=== PATIENT | female | born 1950 | race Hispanic/Latino ===

== ENCOUNTER 2017-08-26 15:55 | Observation (INO) | payer OTHER ==
[~2017-08-26] VITALS: Ht 157.5 cm; Wt 51.8 kg
[~2017-08-26 15:55] MED LIST: ROSU5TAB PO
[2017-08-26 16:57] LABS: APPEARANCE,URINE Clear (CLEAR); BILIRUBIN,URINE Negative (NEGATIVE); COLOR,URINE COLORLESS (YELLOW); GLUCOSE, URINE (UA) Negative (NEGATIVE); KETONES,URINE Negative (NEGATIVE); LEUKOCYTE ESTERASE ,URINE Negative (NEGATIVE); NITRATE,URINE Negative (NEGATIVE); OCCULT BLOOD,URINE Trace (NEGATIVE); PH,URINE 8.5 (5.0-8.0); PROTEIN,URINE Negative (NEGATIVE); UROBILINOGEN,URINE 0.2 mg/dL (0.2-1.0)
[2017-08-26] MEDS ORDERED: ASPIRIN 325 MG TABLET ONE (16:58)
[2017-08-26] MEDS ORDERED: NITROGLYCERIN 1GM/1 INCH PACKET TD ONE (16:58)
[2017-08-26 16:59] LABS: BASOPHILS % (AUTO) 1.1 % (0.0-5.0); EOSINOPHILS % (AUTO) 1.2 % (0.0-8.0); HEMATOCRIT 37.2 % (36-48); MEAN CORPUSCULAR HEMOGLOBIN 30.3 pg (27.0-33.0); MEAN CORPUSCULAR HGB CONC 33.5 g/dL (32.0-36.0); MEAN CORPUSCULAR VOLUME 90.5 fL (79-99); MONOCYTES % (AUTO) 7.6 % (3.0-13.0); NEUTROPHILS % (AUTO) 60.1 % (40.0-77.0); PLATELET COUNT (AUTO) 250 K/uL (130-400); RED BLOOD CELL COUNT(AUTO) 4.11 MIL/uL (4.00-5.50); RED CELL DISTRIBUTION WIDTH 12.8 % (11.0-15.5); WHITE BLOOD COUNT (AUTO) 6.2 K/uL (4.8-10.8)
[2017-08-26 17:06] LABS: BACTERIA,URINE None Seen /HPF (None Seen); RBC,URINE 0-1 /HPF (0-1); SQUAMOUS EPITHELIAL CELL,UR None Seen /LPF (0-2); WBC,URINE None Seen /HPF (0-1)
[2017-08-26 17:12] LABS: INR 0.99 (0.85-1.15); PARTIAL THROMBOPLASTIN TIME 24.9 SEC (26.3-35.5); PROTHROMBIN TIME 10.4 SEC (9.6-11.6)
[2017-08-26 17:50] LABS: CREATININE 0.5 mg/dL (0.5-1.5); POTASSIUM 3.9 mmol/L (3.5-5.1)
[2017-08-26] MEDS ORDERED: ACETAMINOPHEN 325 MG TAB PO PRN ×2 (18:15)
[2017-08-26] MEDS ORDERED: MAG HYDROX/AL HYDROX/SIMETH ES 30 ML SUSP UDCUP PO PRN (18:15)
[2017-08-26] MEDS ORDERED: GUAIFENESIN-DM 200/20 MG 10 ML PO PRN (18:15)
[2017-08-26] MEDS ORDERED: ONDANSETRON HCL 4 MG/2 ML VIAL IV PRN (18:15)
[2017-08-26] MEDS ORDERED: ACETAMINOPHEN-CODEINE 300/30MG TAB PO PRN (18:15)
[2017-08-26] MEDS ORDERED: LACTULOSE 20 GM/30 ML UDCUP PO PRN (18:15)
[2017-08-26] MEDS ORDERED: NITROGLYCERIN 0.4 MG SL TAB SL PRN (18:15)
[2017-08-26 18:18] LABS: ALBUMIN 3.5 g/dL (3.5-5.0); BILIRUBIN,TOTAL 0.3 mg/dL (0.2-1.0); CREATINE KINASE MB 1.5 ng/mL (0.5-3.6); TOTAL PROTEIN, SERUM 7.6 g/dL (6.0-8.3)
[2017-08-26] MEDS: METOPROLOL TARTRATE 25 MG TAB PO SCH (21:00)
[2017-08-26] MEDS ORDERED: ACETAMINOPHEN-CODEINE 300/30MG TAB ONE (22:09)
[2017-08-26] MEDS ORDERED: ZOLPIDEM TARTRATE 5 MG TAB PO PRN (23:15)
[2017-08-26] MEDS ORDERED: NITROGLYCERIN 1GM/1 INCH PACKET TD SCH (23:15)
[2017-08-26] MEDS ORDERED: HYDRALAZINE HCL 20 MG/ML VIAL IV PRN (23:15)
[2017-08-26] MEDS ORDERED: ALPRAZOLAM 0.5 MG TABLET PO PRN (23:15)
[2017-08-27 00:03] LABS: CREATINE KINASE MB 1.1 ng/mL (0.5-3.6); TROPONIN I 0.06 ng/mL (0.00-0.06)
[2017-08-27] MEDS ORDERED: NITROGLYCERIN 1GM/1 INCH PACKET TD ONE ×2 (00:32→08:48)
[2017-08-27] MEDS ORDERED: RANI150T7 PO (08:04)
[2017-08-27] MEDS ORDERED: ASPIRIN 325 MG TABLET ONE (08:47)
[2017-08-27] MEDS ORDERED: ENOXAPARIN SODIUM 40 MG/0.4 ML SYRINGE SQ ONE (08:48)
[2017-08-27] MEDS ORDERED: METOPROLOL TARTRATE 25 MG TAB ONE (08:48)
[2017-08-27] MEDS ORDERED: ENOXAPARIN SODIUM 40 MG/0.4 ML SYRINGE SQ SCH (09:00)
[2017-08-27] MEDS ORDERED: ASPIRIN 325 MG TABLET PO SCH (09:00)
[2017-08-27] MEDS: METOPROLOL TARTRATE 25 MG TAB PO SCH (09:00)
[2017-08-27] MEDS ORDERED: PANTOPRAZOLE SODIUM 40 MG TABLET.DR PO SCH (09:00)
[2017-08-27 09:27] LABS: CREATINE KINASE MB 0.9 ng/mL (0.5-3.6); TROPONIN I 0.06 ng/mL (0.00-0.06)
[2017-08-27 10:09] VITALS: BP 158/72
[2017-08-27] MEDS ORDERED: KETOROLAC TROMETHAMINE 15MG/ML IV PRN (10:30)
[2017-08-27 11:29] VITALS: BP 135/65
[2017-08-27 15:34] VITALS: BP 141/71
[2017-08-27] MEDS ORDERED: ATORVASTATIN CALCIUM 10 MG TABLET PO SCH (21:00)
== END 2017-08-27 18:28 | disposition home or self-care (01) ==
LOC: EDH 15:55 → EDHIP 18:13 → 4DH 08-27 09:45 → 2DH 08-27 15:44
PROVIDERS: ADMIT Family Medicine; ATTEND Family Medicine
DX: R07.89 Other chest pain (principal); R00.2 Palpitations; I10 Essential (primary) hypertension; E78.5 Hyperlipidemia, unspecified; F41.9 Anxiety disorder, unspecified; K21.9 Gastro-esophageal reflux disease without esophagitis; Z74.01 Bed confinement status; Z88.0 Allergy status to penicillin
CPT/HCPCS: 36415 ×2; 70450; 71045; 72072; 72100; 80053; 81001; 82150; 82550 ×3; 82553 ×3; 83690; 83874 ×2; 84484 ×3; 85025; 85610; 85730; 87804 ×2; 93005 ×3; 99285; G0378 ×24; J1650

== ENCOUNTER 2019-08-19 23:03 | Emergency (ER) | payer OTHER ==
[~2019-08-19 23:03] MED LIST changes: +RANI150T7 PO
[2019-08-19 23:31] LABS: BASOPHILS % (AUTO) 0.9 % (0.0-5.0); EOSINOPHILS % (AUTO) 1.6 % (0.0-8.0); HEMATOCRIT 37.2 % (36-48); LYMPHOCYTES % (AUTO) 27.8 % (21.0-51.0); MEAN CORPUSCULAR HEMOGLOBIN 29.1 pg (27.0-33.0); MEAN CORPUSCULAR HGB CONC 32.3 g/dL (32.0-36.0); MEAN CORPUSCULAR VOLUME 90.3 fL (79-99); MONOCYTES % (AUTO) 6.2 % (3.0-13.0); NEUTROPHILS % (AUTO) 63.1 % (40.0-77.0); PLATELET COUNT (AUTO) 304 K/uL (130-400); RED BLOOD CELL COUNT(AUTO) 4.12 MIL/uL (4.00-5.50); RED CELL DISTRIBUTION WIDTH 12.2 % (11.0-15.5); WHITE BLOOD COUNT (AUTO) 7.6 K/uL (4.8-10.8)
[2019-08-19] MEDS ORDERED: SODIUM CHLORIDE 0.9% 1000ML 1,000 ML IV ONE (23:39)
[2019-08-19 23:43] LABS: APPEARANCE,URINE Clear (CLEAR); BILIRUBIN,URINE Negative (NEGATIVE); COLOR,URINE Yellow (YELLOW); GLUCOSE, URINE (UA) Negative (NEGATIVE); KETONES,URINE Negative (NEGATIVE); LEUKOCYTE ESTERASE ,URINE Trace (NEGATIVE); NITRATE,URINE Negative (NEGATIVE); OCCULT BLOOD,URINE Trace (NEGATIVE); PROTEIN,URINE Negative (NEGATIVE); UROBILINOGEN,URINE 0.2 mg/dL (0.2-1.0)
[2019-08-19 23:55] LABS: BACTERIA,URINE None Seen /HPF (None Seen); RBC,URINE None Seen /HPF (0-1); WBC,URINE None Seen /HPF (0-1)
[2019-08-19 23:56] LABS: MUCUS,URINE None Seen LPF (None Seen); SQUAMOUS EPITHELIAL CELL,UR Rare /HPF (0-2)
[2019-08-20 00:13] LABS: CREATININE 0.7 mg/dL (0.5-1.5); POTASSIUM 3.8 mmol/L (3.5-5.1)
[2019-08-20 00:16] LABS: ALBUMIN 3.6 g/dL (3.5-5.0); BILIRUBIN,TOTAL 0.4 mg/dL (0.2-1.0); TOTAL PROTEIN, SERUM 7.9 g/dL (6.0-8.3)
== END 2019-08-20 01:36 | disposition home or self-care (01) ==
LOC: EDH 23:03
DX: H81.399 Other peripheral vertigo, unspecified ear (principal); R05 Cough; E86.0 Dehydration; Z88.0 Allergy status to penicillin; Z88.7 Allergy status to serum and vaccine; K21.9 Gastro-esophageal reflux disease without esophagitis; E78.5 Hyperlipidemia, unspecified
CPT/HCPCS: 36415; 71045; 80053; 81001; 82550; 84484; 85025; 87804 ×2; 93005; 96360; 99285; J7030

== ENCOUNTER 2021-03-02 20:24 | Emergency (ER) | payer OTHER ==
[~2021-03-02] VITALS: Ht 149.9 cm; Wt 45.4 kg
[2021-03-02 21:32] LABS: BASOPHILS % (AUTO) 0.8 % (0.0-5.0); EOSINOPHILS % (AUTO) 1.9 % (0.0-8.0); HEMATOCRIT 38.7 % (36-48); LYMPHOCYTES % (AUTO) 38.8 % (21.0-51.0); MEAN CORPUSCULAR HEMOGLOBIN 30.4 pg (27.0-33.0); MEAN CORPUSCULAR HGB CONC 32.6 g/dL (32.0-36.0); MEAN CORPUSCULAR VOLUME 93.3 fL (79-99); MONOCYTES % (AUTO) 7.3 % (3.0-13.0); NEUTROPHILS % (AUTO) 50.9 % (40.0-77.0); PLATELET COUNT (AUTO) 289 K/uL (130-400); RED BLOOD CELL COUNT(AUTO) 4.15 MIL/uL (4.00-5.50); RED CELL DISTRIBUTION WIDTH 12.2 % (11.0-15.5); WHITE BLOOD COUNT (AUTO) 7.4 K/uL (4.8-10.8)
[2021-03-02 21:45] LABS: CREATININE 0.7 mg/dL (0.5-1.5)
[2021-03-02 21:50] LABS: ALBUMIN 3.8 g/dL (3.5-5.0); BILIRUBIN,TOTAL 0.4 mg/dL (0.2-1.0); TOTAL PROTEIN, SERUM 8.1 g/dL (6.0-8.3)
[2021-03-03] MEDS ORDERED: DICYCLOMINE 20MG (10MG/ML) AMP IM ONE
[2021-03-03 00:01] VITALS: BP 167/71
[2021-03-03 00:20] LABS: APPEARANCE,URINE Clear (CLEAR); BILIRUBIN,URINE Negative (NEGATIVE); COLOR,URINE Yellow (YELLOW); GLUCOSE, URINE (UA) Negative (NEGATIVE); KETONES,URINE Negative (NEGATIVE); LEUKOCYTE ESTERASE ,URINE Moderate (NEGATIVE); NITRATE,URINE Negative (NEGATIVE); OCCULT BLOOD,URINE Negative (NEGATIVE); PH,URINE 7.5 (5.0-8.0); PROTEIN,URINE Negative (NEGATIVE)
[2021-03-03 00:32] LABS: BACTERIA,URINE None Seen /HPF (None Seen); SQUAMOUS EPITHELIAL CELL,UR None Seen /HPF (0-2); WBC,URINE 0-1 /HPF (0-1)
[2021-03-03] MEDS ORDERED: PANT40TA54 PO (01:49)
[2021-03-03] MEDS ORDERED: DICY20TA2 PO (01:49)
[2021-03-03] MEDS ORDERED: METO-296 PO (01:49)
[2021-03-03] MEDS ORDERED: ONDA4TAB10 PO (01:49)
[2021-03-03 02:14] VITALS: BP 157/78
== END 2021-03-03 02:15 | disposition home or self-care (01) ==
LOC: EDH 20:47
DX: K80.20 Calculus of gallbladder without cholecystitis without obstruction (principal); R10.13 Epigastric pain; R10.11 Right upper quadrant pain; R19.7 Diarrhea, unspecified; Z88.0 Allergy status to penicillin; Z79.899 Other long term (current) drug therapy
CPT/HCPCS: 36415; 76705; 80053; 81001; 82150; 83690; 85025; 87088; 93005; 96372; 99285; J0500

== ENCOUNTER 2021-09-12 11:09 | Emergency (ER) | payer OTHER ==
[~2021-09-12] VITALS: Ht 149.9 cm; Wt 50.8 kg
[~2021-09-12 11:09] MED LIST changes: +DICY20TA2 PO; +METO-296 PO; +ONDA4TAB10 PO; +PANT40TA54 PO
[2021-09-12 12:31] VITALS: BP 151/62
== END 2021-09-12 13:08 | disposition home or self-care (01) ==
LOC: EDH 11:09
DX: S42.292A Other displaced fracture of upper end of left humerus, initial encounter for closed fracture (principal); E78.00 Pure hypercholesterolemia, unspecified; K21.9 Gastro-esophageal reflux disease without esophagitis; Z88.0 Allergy status to penicillin; Z90.49 Acquired absence of other specified parts of digestive tract; Z79.899 Other long term (current) drug therapy; X58.XXXA Exposure to other specified factors, initial encounter; Y93.89 Activity, other specified; Y92.89 Other specified places as the place of occurrence of the external cause; Y99.8 Other external cause status
CPT/HCPCS: 73200

== ENCOUNTER 2024-05-22 16:16 | Emergency (ER) | payer OTHER ==
[~2024-05-22] VITALS: Ht 154.9 cm; Wt 59.0 kg
[~2024-05-22 16:16] MED LIST changes: +ONDA-243 PO; -ONDA4TAB10 PO
[2024-05-22 16:45] VITALS: O2SAT 99
[2024-05-22 18:17] VITALS: BP 127/70; PULSE 66; RESP 16; TEMP 98.3
== END 2024-05-22 18:24 | disposition home or self-care (01) ==
LOC: EDH 16:16 → EDBD 16:16 → EDH 18:24
DX: S00.83XA Contusion of other part of head, initial encounter (principal); E78.00 Pure hypercholesterolemia, unspecified; I10 Essential (primary) hypertension; Z79.899 Other long term (current) drug therapy; Z88.0 Allergy status to penicillin; Z88.7 Allergy status to serum and vaccine; W01.10XA Fall on same level from slipping, tripping and stumbling with subsequent striking against unspecified object, initial encounter; Y92.89 Other specified places as the place of occurrence of the external cause; Y93.01 Activity, walking, marching and hiking; Y99.8 Other external cause status
CPT/HCPCS: 70450

== ENCOUNTER 2024-12-19 12:57 | Emergency (ER) | payer OTHER ==
[~2024-12-19] VITALS: Ht 149.9 cm; Wt 44.5 kg
[2024-12-19 13:34] LABS: APPEARANCE,URINE CLEAR (CLEAR); BILIRUBIN,URINE NEGATIVE (NEGATIVE); COLOR,URINE LIGHT-YELLOW (YELLOW); GLUCOSE, URINE (UA) NEGATIVE (NEGATIVE); KETONES,URINE NEGATIVE (NEGATIVE); LEUKOCYTE ESTERASE ,URINE 75 Leu/uL (NEGATIVE); NITRATE,URINE NEGATIVE (NEGATIVE); OCCULT BLOOD,URINE NEGATIVE (NEGATIVE); PROTEIN,URINE 50 mg/dL (NEGATIVE); UROBILINOGEN,URINE 0.2 mg/dL (0.2-1.0)
[2024-12-19 13:37] LABS: ADD UA MICROSCOPIC YES
[2024-12-19 13:39] LABS: BACTERIA,URINE RARE /HPF (None Seen); MUCUS,URINE RARE LPF (None Seen); RBC,URINE 0-1 /HPF (0-1); SQUAMOUS EPITHELIAL CELL,UR RARE /HPF (0-2)
[2024-12-19 13:40] LABS: BASOPHILS # (AUTO) 0.02 K/uL (0.00-0.20); BASOPHILS % (AUTO) 0.3 % (0.0-5.0); EOSINOPHILS # (AUTO) 0.06 K/uL (0.00-0.70); EOSINOPHILS % (AUTO) 0.8 % (0.0-8.0); IMMATURE GRANULOCYTE ABSOLUTE 0.05 K/uL (0-1); LYMPHOCYTES # (AUTO) 1.9 K/uL (1.0-4.8); LYMPHOCYTES % (AUTO) 25.5 % (21.0-51.0); MEAN CORPUSCULAR HEMOGLOBIN 29.9 pg (27.0-33.0); MEAN CORPUSCULAR HGB CONC 32.4 g/dL (32.0-36.0); MEAN CORPUSCULAR VOLUME 92.4 fL (79-99); MONOCYTES # (AUTO) 0.7 K/uL (0.1-1.0); MONOCYTES % (AUTO) 9.5 % (3.0-13.0); NEUTROPHILS # (AUTO) 4.7 K/uL (1.8-7.7); NEUTROPHILS % (AUTO) 63.2 % (40.0-77.0); PLATELET COUNT (AUTO) 254 K/uL (130-400); RED BLOOD CELL COUNT(AUTO) 3.14 MIL/uL (4.00-5.50); RED CELL DISTRIBUTION WIDTH 14.2 % (11.0-15.5); WHITE BLOOD COUNT (AUTO) 7.5 K/uL (4.8-10.8)
[2024-12-19 13:48] LABS: CREATININE 1.8 mg/dL (0.5-1.0); POTASSIUM 3.9 mmol/L (3.5-5.1)
--- NOTE | 2024-12-19 14:02 | HMCIMG ---
CT ABDOMEN/PELVIS W/O CONTRAST HISTORY: Abdominal pain COMPARISON: None TECHNIQUE: Multiple sequential axial images of the abdomen and pelvis were obtained from the dome of the diaphragm through symphysis pubis. Patient was not given contrast through intravenous route. Oral contrast was not given. FINDINGS: No pleural effusion is seen bilaterally. There is no evidence of parenchymal disease or pulmonary nodule of the visualized lower lungs. Degenerative changes of the thoracolumbar spine are present. The heart is not enlarged. Postcholecystectomy changes are seen. The liver, spleen, adrenal glands and pancreas are unremarkable. There is no evidence of hydronephrosis bilaterally. No evidence of renal stone is seen. Fecal material is seen in the colon. There are normal size retroperitoneal and mesenteric lymph nodes. No ascites is seen. Atherosclerotic changes are present. There is an infrarenal abdominal aortic aneurysm measuring 3.7 x 3.6 cm. Pelvic sidewalls are symmetric bilaterally. Bladder is well distended without wall thickening. IMPRESSION: 1. There is an infrarenal abdominal aortic aneurysm measuring 3.7 x 3.6 cm. Large amount of fecal material is seen in the colon. CT was performed with one or more following dose reduction techniques: automated exposure control, adjustment of the mA and kv according to patient's size, or use of a iterative reconstruction technique.
--- NOTE | 2024-12-19 14:30 | ERN ---
General Chief Complaint: Bloody Stool Stated Complaint: POST GI ENDO, RECTAL BLEEDING Time Seen by MD: 12:59 Source: patient History of Present Illness Initial Comments PATIENT IS A 74-YEAR-OLD FEMALE COMING IN TO BE EVALUATED FOR ABDOMINAL PAIN. PATIENT STATES THAT SHE HAD A RECENT ENDOSCOPY TWO DAYS AGO IN HIS HERE FOR FURTHER EVALUATION. SHE WAS STATES THAT SHE NOTICED BLOOD IN HER STOOLS AND DECIDED TO COME IN FOR FURTHER EVALUATION. Allergies: Coded Allergies: Penicillins (Verified Allergy, Unknown, 08/26/17) Uncoded Allergies: FLU VACCINE (Allergy, Mild, 08/27/17) Home Meds Active Scripts Ondansetron (Ondansetron Odt) 4 Mg Tab.rapdis, 4 MG PO Q6HPRN, #20 TAB 0 Refills Prov:PAIGE WARNER MD 03/03/21 Metoclopramide HCl (Reglan) 10 Mg Tablet, 10 MG PO TIDP, #20 TAB 0 Refills Prov:PIAGE WARNER MD 03/03/21 Pantoprazole Sodium (Pantoprazole Sodium) 40 Mg Tablet.dr, 40 MG PO DAILY, #10 TAB 0 Refills Prov:PAIGE WARNER MD 03/03/21 Dicyclomine HCl (Bentyl) 20 Mg Tab, 20 MG PO Q6HPRN, #20 TAB 0 Refills Prov:PAIGE WARNER MD 03/03/21 Reported Medications Ranitidine HCl (Ranitidine HCl) 150 Mg Tablet, 150 MG PO DAILY, TAB 08/27/17 Rosuvastatin Calcium (Crestor) 5 Mg Tablet, 5 MG PO DAILY, TAB 05/09/17 Past Medical History Past Medical History: High Cholesterol, Hypertension Past Surgical History: Other Surgical History Other: RECTAL Family History Family History: Negative Social History Social History: Negative ROS Dictation CONSTITUTIONAL: NO CHILLS, NO FEVER, NO WEAKNESS, NO DIAPHORESIS, NO MALAISE. HEAD/FACE: NO SIGNS OF TRAUMA. EENT: NO EYE PAIN, NO BLURRED VISION, NO TEARING, NO DOUBLE VISION, NO EAR PAIN, NO EAR DISCHARGE, NO NOSE PAIN, NO NASAL CONGESTION, NO THROAT PAIN, NO THROAT SWELLING, NO MOUTH PAIN. RESPIRATORY: NO COUGH, NO ORTHOPNEA, NO SOB, NO STRIDOR, NO WHEEZING. CARDIOVASCULAR: NO CHEST PAIN, NO EDEMA, NO PALPITATIONS, NO SYNCOPE. GASTROINTESTINAL/ABDOMINAL: NO ABDOMINAL PAIN, NO CONSTIPATION, NO DIARRHEA, NO NAUSEA, NO VOMITING. GENITOURINARY: NO ABNORMAL DISCHARGE, NO DYSURIA, NO FREQUENT URINATION, NO HEMATURIA. NO COMPLAINTS OF PAIN IN THE GENITALS. MUSCULOSKELETAL: NO BACK PAIN, NO GOUT, NO JOINT PAIN, NO JOINT SWELLING, NO MUSCLE PAIN, NO MUSCLE STIFFNESS, NO NECK PAIN. INTEGUMENTARY: NO CHANGE IN COLOR, NO CHANGE IN HAIR/NAILS, NO DRYNESS, NO LESION, NO LUMPS, NO RASH. NEUROLOGICAL/PSYCH: NO ANXIETY, NOT DEPRESSED, NO EMOTIONAL PROBLEM, NO HEADACHE, NO NUMBNESS, NO PRE-EXISTING DEFICIT, NO HISTORY OF SEIZURES, NO TREMORS, NO WEAKNESS. HEMATOLOGIC/LYMPHATIC: NOT ANEMIC, NO HISTORY OF BLOOD CLOTS, NO APPARENT BLEEDING, NO BRUISING, GLANDS NOT SWOLLEN. ALL SYSTEMS NEGATIVE, EXCEPT NOTED. Physical Exam Physical Exam Dictation VITAL SIGNS: REVIEWED. GENERAL APPEARANCE: ALERT, ORIENTED X3, NO ACUTE DISTRESS, OBESE. HEAD AND FACE: NON-TRAUMATIC. EYES: PERRL, PINK CONJUNCTIVAS, EYELID NO TRAUMA, ANTERIOR CHAMBER CLEAR. EARS: PINNAS INTACT AND NO SIGNS OF TRAUMA OR ERYTHEMA. EAR CANALS CLEAR AND NO DISCHARGE. TMS NO ERYTHEMA. NOSE: NO DISCHARGE, NO BLEEDING. OROPHARYNX: MOUTH NORMAL, TEETH NO CARIES, TONGUE PINK. PHARYNX CLEAR, NO ERYTHEMA. TONSILS NO EXUDATES, NO ABSCESSES NOTED. MUCOUS MEMBRANE MOIST. NECK: SUPPLE, NON-TENDER, NO THYROMEGALY, NO MASSES, NO JVD, NO BRUITS. BREAST: DEFERRED. CHEST: NO TENDERNESS, NO CREPITUS, NO PARADOXICAL MOVEMENT, NO RETRACTIONS. LUNGS: CLEAR, WELL-VENTILATED, SYMMETRIC, NO RALES, NO WHEEZING, NO RHONCHI, NO STRIDOR, GOOD BREATH SOUNDS BILATERALLY. HEART: REGULAR RATE, REGULAR RHYTHM, NO MURMUR, NO GALLOPS. VASCULAR: NO PERIPHERAL EDEMA. ABDOMEN: SOFT, POSITIVE BOWEL SOUNDS, NONDISTENDED, NO GUARDING, NONTENDER, NO REBOUND, NO MASSES NO HEPATOMEGALY, NO SPLENOMEGALY, NO IZQUIERDO'S SIGN, NO HERNIAS. RECTAL: DEFERRED. GENITAL: DEFERRED. NEUROLOGICAL: NORMAL SPEECH, GROSS MOTOR FUNCTION INTACT, GROSS SENSORY FUNCTION INTACT. MUSCULOSKELETAL: NECK NONTENDER, FULL RANGE OF MOTION, BACK NONTENDER, FULL RANGE OF MOTION. EXTREMITIES: NONTENDER, FULL RANGE OF MOTION. SKIN: COLOR PINK, DRY, NO TURGOR, NO RASH, NO LACERATIONS, NO ABRASIONS, NO CONTUSIONS. LYMPHATICS: DEFERRED. Results Laboratory and Microbiology Lab and Micro Result Laboratory Tests Test 12/19/24 13:14 12/19/24 13:25 12/19/24 15:19 Urine Color LIGHT-YELLOW (YELLOW) Urine Appearance CLEAR (CLEAR) Urine pH 6.0 (5.0-8.0) Urine Specific [place] 1.009 (1.001-1.031) Urine Protein 50 mg/dL (NEGATIVE) H Urine Glucose (UA) NEGATIVE mg/dL (NEGATIVE) Urine Ketones NEGATIVE mg/dL (NEGATIVE) Urine Occult Blood NEGATIVE (NEGATIVE) Urine Nitrate NEGATIVE (NEGATIVE) Urine Bilirubin NEGATIVE mg/dL (NEGATIVE) Urine Urobilinogen 0.2 mg/dL (0.2-1.0) Urine Leukocyte Esterase 75 [place]cee/uL (NEGATIVE) H Urine RBC 0-1 /HPF (0-1) Urine WBC 2-5 /HPF (0-1) H Urine Squamous Epithelial Cells RARE /HPF (0-2) Urine Bacteria RARE /HPF (None Seen) White Blood Count 7.5 K/uL (4.8-10.8) Red Blood Count 3.14 MIL/uL (4.00-5.50) L Hemoglobin 9.4 g/dL (12.0-16.0) L Hematocrit 29.0 % (36-48) L Mean Corpuscular Volume 92.4 fL (79-99) Mean Corpuscular Hemoglobin 29.9 pg (27.0-33.0) Mean Corpuscular Hemoglobin Concent 32.4 g/dL (32.0-36.0) Red Cell Distribution Width 14.2 % (11.0-15.5) Platelet Count 254 K/uL (130-400) Mean Platelet Volume 10.1 fL (7.5-10.5) Immature Granulocyte % (Auto) 0.7 % (0-1) Neutrophils (%) (Auto) 63.2 % (40.0-77.0) Lymphocytes (%) (Auto) 25.5 % (21.0-51.0) Monocytes (%) (Auto) 9.5 % (3.0-13.0) Eosinophils (%) (Auto) 0.8 % (0.0-8.0) Basophils (%) (Auto) 0.3 % (0.0-5.0) Neutrophils # (Auto) 4.7 K/uL (1.8-7.7) Lymphocytes # (Auto) 1.9 K/uL (1.0-4.8) Monocytes # (Auto) 0.7 K/uL (0.1-1.0) Eosinophils # (Auto) 0.06 K/uL (0.00-0.70) Basophils # (Auto) 0.02 K/uL (0.00-0.20) Absolute Immature Granulocyte (auto 0.05 K/uL (0-1) Nucleated Red Blood Cells 0.0 % (0.0-0.19) Sodium Level 138 mmol/L (136-145) Potassium Level 3.9 mmol/L (3.5-5.1) Chloride Level 102 mmol/L (101-111) Carbon Dioxide Level 29 mmol/L (21-32) Blood Urea Nitrogen 26 mg/dL (7-18) H Creatinine 1.8 mg/dL (0.5-1.0) H Glomerular Filtration Rate Calc 29 mL/min (>90) Random Glucose 95 mg/dL (70-105) Total Calcium 9.0 mg/dL (8.5-10.1) Total Creatine Kinase 40 U/L (21-232) # Troponin I High Sensitivity 291 ng/L (4-50) *H 305 ng/L (4-50) *H Lipase 73 U/L (16-77) Labs Reviewed?: Yes EKG/XRAY/US/CT/MRI EKG Comment 12/19/2024 time 4:27 p.m. Ventricular rate 72 Sinus rhythm [place] [address] wave elevation or depression CT Scan Comment [place] [address] [place] [address] IMAGING REPORT Signed PATIENT: CHRISTINA WAGNER MR#: [id number] : 1950 SEX: F AGE: 74 LOCATION: [facility] ORDER STATUS: REG ER REPORT#: [id number] SERVICE 1315 REASON: ABD PAIN ORDERING PHYSICIAN: LUCIANO GASCA MD PROCEDURE: ABD PEL WO - CT ABDOMEN/PELVIS W/O CONTRAST CT ABDOMEN/PELVIS W/O CONTRAST HISTORY: Abdominal pain COMPARISON: None TECHNIQUE: Multiple sequential axial images of the abdomen and pelvis were obtained from the dome of the diaphragm through symphysis pubis. Patient was not given contrast through intravenous route. Oral contrast was not given. FINDINGS: No pleural effusion is seen bilaterally. There is no evidence of parenchymal disease or pulmonary nodule of the visualized lower lungs. Degenerative changes of the thoracolumbar spine are present. The heart is not enlarged. Postcholecystectomy changes are seen. The liver, spleen, adrenal glands and pancreas are unremarkable. There is no evidence of hydronephrosis bilaterally. No evidence of renal stone is seen. Fecal material is seen in the colon. There are normal size retroperitoneal and mesenteric lymph nodes. No ascites is seen. Atherosclerotic changes are present. There is an infrarenal abdominal aortic aneurysm measuring 3.7 x 3.6 cm. Pelvic sidewalls are symmetric bilaterally. Bladder is well distended without wall thickening. IMPRESSION: 1. There is an infrarenal abdominal aortic aneurysm measuring 3.7 x 3.6 cm. Large amount of fecal material is seen in the colon. CT was performed with one or more following dose reduction techniques: automated exposure control, adjustment of the mA and kv according to patient's size, or use of a iterative reconstruction technique. DICTATED BY: ELADIA VIDAL MD DATE: 12/19/24 1358 ELECTRONICALLY SIGNED BY: ELADIA VIDAL MD DATE: 12/19/24 1402 [facility] MDM: Differential diagnosis: GI bleed, anemia, ACS, NSTEMI, history of kidney failure, Rationale: Tests considered and ordered secondary to shared decision making include: labs, ECG and radiology Previous outside records reviewed: Old ER visits. Risk of complication and/or morbidity or mortality of patient management: None Medications-Per medication reconciliation Need for hospitalization: Patient does meet criteria for hospitalization. Need for emergency major/minor surgery: No There are no social concerns with this patient. Prescription drug management Prescriptions will include symptomatic care Patient's prior external medical records from other ER visits were reviewed by me as indicated. Prior testing and results from previous visits were reviewed. Prior tests were taken into account with medical decision making and resource utilization, independent historian/historians were used to obtain complete medical history. I independently interpreted the test that were performed, results were reviewed by me and considered findings on radiology if ordered. Medical management and examination interpretation discussions were had by me with other qualified healthcare professionals as indicated for the patient's care. Patient is a 74-year-old female coming in to be evaluated for possible GI bleed. Patient states that she had received a colonoscopy and noticed some dark stools so she was here for further evaluation. Per patient she was told by the quality control supervisor to evaluate her hemoglobin since she has a history of anemia with repeated blood transfusions. Hemoglobin is stable but a cardiac enzymes are elevated I advised her on the findings and also advised family members of the seriousness of having elevated troponins. Per family member patient always has a elevated troponins and is not concerned of the elevated troponins I thoroughly explained what elevated troponins signifies which we will be a heart attack in progress patient was not having chest pain but I still advised to keep her overnight to be evaluated by veterans rehabilitation counselor. Patient refused and states if she has any discomfort she will seek immediate help with dhr. She states that they have her medical records over there. I also advised her if she changes her mind she was always welcome to come back for us to be evaluated. ED Course Orders Procedure Category Date Status Time Cbc With Differential LAB 12/19/24 Complete 13:15 Troponin I High LAB 12/19/24 Complete Sensitivity 13:15 Urinalysis Profile LAB 12/19/24 Complete 13:15 Occult Blood Stool LAB 12/19/24 Logged Single Only 13:15 Creatine Kinase, Total LAB 12/19/24 Complete 13:15 Ct Abdomen/Pelvis W/O CT 12/19/24 Resulted Contrast 13:15 Lipase LAB 12/19/24 Complete 13:15 Basic Metabolic Panel LAB 12/19/24 Complete 13:15 Culture Urine PARTH 12/19/24 In Process 13:37 12 Lead Ekg Tracing- EKG 12/19/24 Complete Technical 14:30 Troponin I High LAB 12/19/24 Complete Sensitivity 15:06 Vital Signs Date Time Temp Pulse Resp B/P (MAP) Pulse Ox O2 Delivery O2 Flow Rate FiO2 12/19/24 17:26 98.2 66 16 160/62 98 Room Air* 0 21 12/19/24 13:25 98.2 65 16 165/65 98 Room Air* 0 21 12/19/24 13:06 98.6 66 16 168/69 99 Room Air DX & DISP Disposition: AMA Departure Impression: Primary Impression: Anemia Additional Impressions: GI bleed, NSTEMI (non-ST elevated myocardial infarction), End stage renal disease, Left against medical advice Condition: Against Medical Advice Referrals: TAINA VILLEDA (PCP) LUCIANO GASCA MD December 19, 2024 14:30
--- NOTE | 2024-12-19 14:38 | EKG ---
[facility] Test Date: 2024-12-19 Test Time: 14:35:22 Pat Name: CHRISTINA WAGNER Department: ED Room: Gender: F Accelerator Technician: [id number] : 1950 Requested By: LUCIANO GASCA Order Number: [id number] Reading MD: Fer Maldonado Measurements Intervals Carman Rate: 68 P: 58 HI: 144 QRS: 67 QRSD: 138 T: -70 QT: 409 QTc: 435 Interpretive Statements Sinus rhythm Right bundle branch block Nonspecific T abnormalities, lateral leads Compared to ECG 03/03/2021 00:02:18 T-wave abnormality now present Electronically Signed On 12-20-2024 11:08:26 CDT by Fer Maldonado Please click the below link to view image of tracing.
[2024-12-19 17:26] VITALS: BP 160/62; PULSE 66; RESP 16; TEMP 98.3; O2SAT 98
== END 2024-12-19 17:22 | disposition left against medical advice (07) ==
LOC: EDH 12:57
DX: K92.2 Gastrointestinal hemorrhage, unspecified (principal); I12.0 Hypertensive chronic kidney disease with stage 5 chronic kidney disease or end stage renal disease; N18.6 End stage renal disease; D63.1 Anemia in chronic kidney disease; E78.00 Pure hypercholesterolemia, unspecified; I21.4 Non-ST elevation (NSTEMI) myocardial infarction; Z79.899 Other long term (current) drug therapy; Z88.0 Allergy status to penicillin; Z88.7 Allergy status to serum and vaccine; Z98.890 Other specified postprocedural states
CPT/HCPCS: 36415; 74176; 80048; 81001; 82550; 83690; 84484; 85025; 87086; 93005; 99284